=== PATIENT | female | born 1990 | race American Indian/Alaskan Native ===

== ENCOUNTER 2019-04-15 10:48 | Emergency (ER) | payer BC ==
--- NOTE | 2019-04-15 10:56 | Event Note ---
ED Screening Note ED Screening Note: pt present to the ED for suprapubic abd pain that began last night states she has vaginal bleeding LNMP march 12 states she has taken 4 at home tests which were positive, has not yet had her confirmed first no PMHx no allergies to meds This initial assessment/diagnostic orders/clinical plan/treatment(s) is/are subject to change based on patients health status, clinical progression and re- assessment by fellow clinical providers in the ED. Further treatment and workup at subsequent clinical providers discretion. Patient/guardian urged not to elope from the ED as their condition may be serious if not clinically assessed and managed. Initial orders include: labs, urine
[2019-04-15 11:30] LABS: Basophils % (Auto) 0.6 % (0.0-1.8); Eosinophils # (Auto) 0.1 K/mm3 (0.0-0.4); Eosinophils % (Auto) 0.7 % (0.0-4.3); Hematocrit 42.4 % (30.3-42.9); Lymphocytes # (Auto) 3.1 K/mm3 (1.2-5.4); Lymphocytes % (Auto) 39.6 % (13.4-35.0); Mean Corpuscular HGB Conc 33 % (30-34); Mean Corpuscular Volume 86 fl (79-97); Monocytes # (Auto) 0.6 K/mm3 (0.0-0.8); Monocytes % (Auto) 7.9 % (0.0-7.3); Platelet Count 233 K/mm3 (140-440); Red Blood Count 4.92 M/mm3 (3.65-5.03); Red Cell Distribution Width 15.1 % (13.2-15.2)
[2019-04-15 12:05] LABS: Bacteria,Urine 1+ /HPF (Negative); Bilirubin,Urine NEG (Negative); Blood,Urine LG (Negative); Color,Urine Red (Yellow); Mucus,Urine 2+ /HPF; Urobilinogen,Urine < 2.0 mg/dL (<2.0)
--- NOTE | 2019-04-15 13:43 | Emergency Department Report ---
ED Female HPI - General Chief complaint: Vaginal Bleeding Stated complaint: VAG BLEED (PREG) Time Seen by Provider: 04/15/19 10:54 Source: patient Mode of arrival: Ambulatory Limitations: No Limitations - History of Present Illness Initial comments: This is a 28-year-old female presents to ED complaining of vaginal bleeding and finally enalapril plus days ago that she was . She states last menstrual period March 05 2019 shows takes that daily. She denies abdominal pain, fever, nausea vomiting or diarrhea MD Complaint: vaginal bleeding -: Sudden Severity: mild Severity scale (0 -10): 3 Quality: cramping Are you Now?: Yes Last Menstrual Period: 03/05/19 EDC: 12/10/19 Associated Symptoms: denies: vaginal discharge, nausea/vomiting, dysuria, hematuria - Related Data Sexually active: Yes : 1 Para: 0 Previous Rx's Medication Instructions Recorded Last Taken Type Nitrofurantoin Dixon/M-Cryst 100 mg PO Q12HR #14 capsule 04/15/19 Unknown Rx [Macrobid CAP] Allergies Allergy/AdvReac Type Severity Reaction Status Date / Time No Known Allergies Allergy Unverified 04/15/19 10:49 ED Review of Systems ROS: Stated complaint: VAG BLEED (PREG) Other details as noted in HPI Comment: All other systems reviewed and negative ED Past Medical Hx - Past Medical History Previous Medical History?: No - Surgical History Past Surgical History?: No - Social History Smoking Status: Never Smoker Substance Use Type: None - Medications Home Medications: Home Medications Medication Instructions Recorded Confirmed Last Taken Type Nitrofurantoin Dixon/M-Cryst 100 mg PO Q12HR #14 capsule 04/15/19 Unknown Rx [Macrobid CAP] ED Physical Exam - General Limitations: No Limitations General appearance: alert, in no apparent distress - Head Head exam: Present: atraumatic, normocephalic - Eye Eye exam: Present: normal appearance - ENT ENT exam: Present: mucous membranes moist - Neck Neck exam: Present: normal inspection - Respiratory Respiratory exam: Present: normal lung sounds bilaterally. Absent: respiratory distress - Cardiovascular Cardiovascular Exam: Present: regular rate, normal rhythm. Absent: systolic murmur, diastolic murmur, rubs, gallop - GI/Abdominal GI/Abdominal exam: Present: soft, normal bowel sounds. Absent: distended, tenderness, guarding, rebound, mass - Extremities Exam Extremities exam: Present: normal inspection - Back Exam Back exam: Present: normal inspection - Neurological Exam Neurological exam: Present: alert, oriented X3 - Psychiatric Psychiatric exam: Present: normal affect, normal mood - Skin Skin exam: Present: warm, dry, intact, normal color. Absent: rash ED Course Vital Signs 04/15/19 04/15/19 10:54 15:47 Temperature 98.7 F Pulse Rate 102 H 88 Respiratory 16 18 Rate Blood Pressure 134/85 Blood Pressure 151/90 [Right] O2 Sat by Pulse 99 100 Oximetry ED Medical Decision Making - Lab Data Result diagrams: 04/15/19 11:16 - Radiology Data Radiology results: report reviewed, image reviewed ULTRASOUND OB LESS THAN 14 WEEKS FETUS ULTRASOUND OB TRANSVAGINAL HISTORY: Vaginal bleeding TECHNIQUE: Transabdominal and transvaginal ultrasound images with color Doppler imaging. COMPARISON: None. FINDINGS: The uterus is anteverted. The uterus measures 10.8 x 4.4 x 6.4 cm. No uterine mass is appreciated. The cervix is unremarkable. A small intrauterine gestational sac containing a yolk sac is identified. No convincing pole or heart rate is demonstrated at this time. Average gestational sac diameter measures 11 mm which correlates with a 5 week 6 day . No subchorionic hemorrhage is appreciated. The right ovary is unremarkable measuring 3.3 x 2.2 x 3.3 cm. The left ovary measures 4.7 x 3.1 x 4.1 cm and contains a 2.8 cm simple cyst. IMPRESSION: Probable normal early intrauterine . A gestational sac containing a yolk sac is identified in the uterine cavity. No convincing pole or heart tones are demonstrated at this time. Close interval follow-up is recommended. Left ovarian cyst. Signer Name: Guido Kolb Jr, MD Signed: 04/15/2019 3:16 PM Workstation Name: [id number] Transcribed By: TTR Dictated By: GUIDO KOLB JR, MD Electronically Authenticated By: GUIDO KOLB JR, MD Signed Date/Time: 04/15/19 5916 - Medical Decision Making 28-year-old female presents to ED with vaginal bleeding ED course: Pt received ultra sound, CBC, urinalysis, test. All labs within normal limits, Ultrasound shows early intrauterine . Vital signs normalized patient is in no acute distress. I discussed with the patient if follow-up with her [facility] within 2-3 days. I discussed all labs and ultrasound findings with the patient. I discussed with the patient that he if bleeding worsens or new symptoms develop to return to ED immediately Critical care attestation.: If time is entered above; I have spent that time in minutes in the direct care of this critically ill patient, excluding procedure time. ED Disposition Clinical Impression: Vaginal bleeding in , UTI (urinary tract infection) Disposition: TO HOME OR SELFCARE Is pt being admited?: No Does the pt Need Aspirin: No Condition: Stable Instructions: Threatened Miscarriage (ED), Urinary Tract Infection in Women (ED) Additional Instructions: Make sure to follow up with the [facility] as discussed. You may follow-up with [facility] in 2 days for repeat beta quantitative If you have any worsening symptoms or develop new symptoms please return to ED immediately. Prescriptions: Nitrofurantoin Dixon/M-Cryst [Macrobid CAP] 100 mg PO Q12HR #14 capsule Referrals: DONNA TARANGO MD [Primary Care Provider] - 3-5 Days [facility] [Provider Group] - 3-5 Days [facility] [Provider Group] - 3-5 Days Forms: Work/School Release Form(ED) Time of Disposition: 15:25
--- NOTE | 2019-04-15 15:21 | Ultrasound Report ---
ULTRASOUND OB LESS THAN 14 WEEKS FETUS ULTRASOUND OB TRANSVAGINAL HISTORY: Vaginal bleeding TECHNIQUE: Transabdominal and transvaginal ultrasound images with color Doppler imaging. COMPARISON: None. FINDINGS: The uterus is anteverted. The uterus measures 10.8 x 4.4 x 6.4 cm. No uterine mass is appreciated. Th e cervix is unremarkable. A small intrauterine gestational sac containing a yolk sac is identified. No convincing pole or heart rate is demonstrated at this time. Average gestational sac diameter measures 11 mm which correlates with a 5 week 6 day . No subchorionic hemorrhage is appreciated. The right ovary is unremarkable measuring 3.3 x 2.2 x 3.3 cm. The left ovary measures 4.7 x 3.1 x 4.1 cm and contains a 2.8 cm simple cyst. IMPRESSION: Probable normal early intrauterine . A gestational sac containing a yolk sac is identified i n the uterine cavity. No convincing pole or heart tones are demonstrated at this time. Cl ose interval follow-up is recommended. Left ovarian cyst. Signer Name: Guido Gongora Jr, MD Signed: 04/15/2019 3:16 PM Workstation Name: [id number]
[2019-04-15 15:48] VITALS: BP 151/90
== END 2019-04-15 15:47 | disposition home or self-care (01) ==
LOC: ED 10:48
DX: O23.41 Unspecified infection of urinary tract in pregnancy, first trimester (principal); O20.8 Other hemorrhage in early pregnancy; Z3A.01 Less than 8 weeks gestation of pregnancy
CPT/HCPCS: 36415; 76801; 76817; 81001; 84702; 85025; 86900; 86901; 87086